=== PATIENT | female | born 1980 | race Caucasian/White ===

== ENCOUNTER 2021-07-29 15:14 | Outpatient (CLI) | payer BC ==
--- NOTE | 2021-07-30 09:08 | Ultrasound Report ---
PROCEDURE: OB Detailed Eval INDICATIONS: SUPERVISION OF NORMAL PREGANCY OUTSIDE/PRIOR DATING DATA: Last menstrual period (LMP): 03/07/2021. LMP-based estimated date of delivery (WILFREDO): 12/12/2021. First dating scan (date and location): 07/29/2021 (current exam). Estimated date of delivery (WILFREDO) from first dating scan: 12/08/2021. The below data below was generated using the clinical WILFREDO of 12/12/2021 TECHNIQUE: Real-time scanning was performed of the fetus, with image documentation and biometric measurements. Endovaginal scanning: Not performed. COMPARISON: None. FINDINGS: General: A single living intrauterine gestation is present. Presentation: Interval Placenta: Placental position is anterior, without previa. Please note that initially the placenta a ppeared to be low-lying, but subsequently there was relaxation of the lower uterine segment and the p lacenta is seen to be located 5.6 cm from the internal cervical os. Amniotic fluid index: 17.8 cm cm, normal for gestational age. Largest single vertical pocket: 5.5 cm. heart rate: 152 beats per minute. Maternal cervical canal: 4.6 cm long; normal length is 2.5 cm or more. biometrics: Biparietal diameter: 5.26 cm, 22 weeks 0 days Head circumference: 19.3 cm, 21 weeks 4 days Abdominal circumference: 16.8 cm, 21 weeks 5 days Femur length: 3.18 cm, 19 weeks 6 days Estimated gestational age from initial scan: not applicable. Estimated clinical gestational age: 20 weeks 4 days Composite gestational age from present scan: 21 weeks 1 day Estimated weight and percentile: 394 g, 71st percentile Measurement variability in biometric dating: +/- 10 days from 12-20 weeks gestation, +/- 2 weeks from 20-30 weeks gestation, +/- 3 weeks at 30 weeks gestation or later. Anatomic survey: Neuro: Ventricles are normal at less than 10 mm. Cisterna magna is normal at 3-11 mm. Cerebellum i s normal in size and morphology. Nuchal skin fold: Normal at less than 6 mm between 14 and 20 weeks gestational age. Face: Nose and lips, facial profile are normal. Spine: No evidence for spina bifida. Heart: 4-chambered heart is present, with normal ventricular outflow tracts. Diaphragm: Diaphragm is intact. Stomach: Left-sided stomach is present. Kidneys: No hydronephrosis. Normal is less than 5 mm in 2nd trimester, less than 7 mm in 3rd trimester. Cord: 3 vessel cord has orthotopic insertion. Bladder: Normal in size. Extremities: All 4 extremities are visualized. IMPRESSION: 1.Single live intrauterine . 2.Normal anatomic survey. Reviewed by: Sesar Guadalupe MD on 07/30/2021 9:06 AM [facility] Approved by: Sesar Guadalupe MD on 07/30/2021 9:06 AM PST Station ID: [id number]
== END 2021-07-29 15:15 | disposition home or self-care (01) ==
LOC: DI 15:14
PROVIDERS: ATTEND Midwife
DX: Z34.02 Encounter for supervision of normal first pregnancy, second trimester (principal)

== ENCOUNTER 2021-12-16 01:57 | Inpatient (IN) | payer BC ==
[2021-12-16 02:34] LABS: RUPTURE OF MEMBRANES PLUS POSITIVE (NEGATIVE)
[2021-12-16] MEDS ORDERED: SODIUM CHLORIDE FLUSH 0.9% 10 ML SYRINGE IVP PRN (03:16)
[2021-12-16] MEDS ORDERED: CARBOPROST TROMETHAMINE 250 MCG/ML AMP IM PRN (03:16)
[2021-12-16] MEDS ORDERED: TERBUTALINE 1 MG/ML VIAL SUBQ PRN (03:16)
[2021-12-16] MEDS ORDERED: METHYLERGONOVINE 0.2 MG/ML VIAL IM PRN (03:16)
[2021-12-16] MEDS ORDERED: miSOPROStoL 200 MCG TABLET BC PRN (03:16)
[2021-12-16] MEDS ORDERED: miSOPROStoL 200 MCG TABLET PR PRN (03:16)
[2021-12-16] MEDS ORDERED: OXYTOCIN 10 UNIT/ML VIAL IM PRN (03:16)
[2021-12-16] MEDS ORDERED: LIDOCAINE-MPF 1% 30 ML VIAL ID PRN (03:16)
[2021-12-16] MEDS ORDERED: fentaNYL 100 MCG/2 ML VIAL IVP PRN (03:16)
[2021-12-16] MEDS ORDERED: TRANEXAMIC ACID IN NACL 1,000 MG/100 ML BAG IV PRN (03:16)
[2021-12-16 03:29] LABS: BASOPHILS % (AUTO) 0.3 %; EOSINOPHILS # (AUTO) 0.1 10^3/uL (0.0-0.7); EOSINOPHILS % (AUTO) 0.6 %; HCT - HEMATOCRIT 35.1 % (37.0-47.0); HGB - HEMOGLOBIN 11.7 g/dL (12.0-16.0); LYMPHOCYTES # (AUTO) 1.2 10^3/uL (1.5-3.5); LYMPHOCYTES % (AUTO) 13.5 %; MEAN CORPUSCULAR HEMOGLOBIN 28.5 pg (27.0-31.0); MEAN CORPUSCULAR HGB CONC 33.3 g/dL (32.0-36.0); MEAN CORPUSCULAR VOLUME 85.6 fL (81.0-99.0); MEAN PLATELET VOLUME 12.9 fL (7.9-10.8); MONOCYTES # (AUTO) 0.6 10^3/uL (0.0-1.0); MONOCYTES % (AUTO) 6.6 %; NEUTROPHILS % (AUTO) 78.7 %; PLT - PLATELET COUNT 166 10^3/uL (130-450); RED CELL DISTRIBUTION WIDTH 13.2 % (12.0-15.0); WHITE BLOOD COUNT 8.9 x10^3/uL (4.8-10.8)
[2021-12-16] MEDS ORDERED: LACTATED RINGERS 1,000 ML IV SCH (04:00)
[2021-12-16] MEDS ORDERED: fentaNYL 100 MCG/2 ML VIAL ONE (10:11)
[2021-12-16] MEDS ORDERED: ROPIVACAINE 0.2% 200 MG/100 ML BAG EP ONE (10:11)
[2021-12-16] MEDS ORDERED: diphenhydrAMINE INJ 50 MG/ML VIAL IVP PRN (10:28)
[2021-12-16] MEDS ORDERED: ONDANSETRON 4 MG/2 ML VIAL IVP PRN (10:28)
[2021-12-16] MEDS ORDERED: METOCLOPRAMIDE 10 MG/2 ML VIAL IVP PRN (10:28)
[2021-12-16] MEDS ORDERED: NALOXONE 0.4 MG/ML VIAL IVP PRN (10:28)
[2021-12-16] MEDS ORDERED: ePHEDrine 50 MG/ML VIAL IVP PRN (10:28)
[2021-12-16] MEDS ORDERED: NALBUPHINE 10 MG/ML AMP IVP PRN (10:28)
--- NOTE | 2021-12-16 10:28 | ANESTHESIA PROCEDURE NOTE ---
Anesthesia Epidural Template - Patient Report Patient Reports: positive: Pain controlled - Plan Plan: positive: Continue current management
--- NOTE | 2021-12-16 10:28 | ANESTHESIA ---
Pre-Anesthesia VS, & Labs - Diagnosis active labor - Procedure labor epidural Vital Signs: Temp Pulse Resp BP Pulse Ox 36.9 C 66 16 93/47 L 12/16/21 03:27 12/16/21 03:27 12/16/21 03:27 12/16/21 03:27 Height: 5 ft 7 in Weight (kg): 73.482 kg Body Mass Index: 25.3 BMI Classification: Overweight - NPO Other (drinking) - Is Patient ?: Yes - Lab Results Current Lab Results: Laboratory Tests 12/16/21 03:41: Blood Type A POSITIVE, Antibody Screen NEGATIVE 12/16/21 03:00: WBC 8.9, RBC 4.10 L, Hgb 11.7 L, Hct 35.1 L, MCV 85.6, MCH 28.5, MCHC 33.3, RDW 13.2, Plt Count 166, MPV 12.9 H, Neut # (Auto) 7.0 H, Lymph # (Auto) 1.2 L, [place] # (Auto) 0.6, Eos # (Auto) 0.1, Baso # (Auto) 0.0, Absolute Nucleated RBC 0.00, Nucleated RBC % 0.0 Fish Bones: 12/16/21 03:00 Home Medications and Allergies Active Medications Carboprost Tromethamine (Carboprost Tromethamine 250 Mcg/Ml Amp) 250 mcg IM .ONCE PRN PRN Reason: Hemorrhage Fentanyl (Fentanyl 100 Mcg/2 Ml Vial) 50 mcg IVP Q1H PRN PRN Reason: Severe Pain (score 7-10) Oxytocin/Sodium Chloride (Pitocin/Sodium Chloride) 500 mls @ 999 mls/hr IV PRN PRN; Protocol PRN Reason: POST- HEMORR PREVENTION Tranexamic Acid (Tranexamic 1,000 Mg/100ml-Nacl) 1,000 mg in 100 mls @ 600 mls/hr IV Q30M PRN PRN Reason: EBL >1200mL and within 3hr Lactated Ringer's (Lr) 1,000 mls @ 75 mls/hr IV .[id number] GEOVANI Lidocaine HCl (Lidocaine-Mpf 1% 30 Ml Vial) 30 ml ID ONCE PRN PRN Reason: PERINEAL REPAIR Stop: 12/17/21 03:16 Methylergonovine Maleate (Methylergonovine 0.2 Mg/Ml Vial) 0.2 mg IM .ONCE PRN PRN Reason: Hemorrhage Misoprostol (Misoprostol 200 Mcg Tablet) 600 mcg BC .ONCE PRN PRN Reason: Hemorrhage Misoprostol (Misoprostol 200 Mcg Tablet) [address] .ONCE PRN PRN Reason: Hemorrhage Oxytocin (Oxytocin 10 Unit/Ml Vial) 10 unit IM .ONCE PRN PRN Reason: Step One if no IV access. Sodium Chloride (Sodium Chloride Flush 0.9% 10 Ml Syringe) 10 ml IVP PRN PRN PRN Reason: NEEDED PER PROVIDER ORDERS Terbutaline Sulfate (Terbutaline 1 Mg/Ml Vial) 0.25 mg SUBQ .ONCE PRN PRN Reason: Tachystole Allergies/Adverse Reactions: Allergies Allergy/AdvReac Type Severity Reaction Status Date / Time codeine AdvReac Unknown Verified 12/16/21 03:32 Anes History & Medical History - Anesthetic History Anesthesia Complications: reports: No previous complications Family history of Anesthesia Complications: Denies Family history of Malignant Hyperthermia: Denies - Medical History Cardiovascular: reports: None Pulmonary: reports: None Gastrointestinal: reports: None Urinary: reports: None Neuro: reports: None Musculoskeletal: reports: Scoliosis Endocrine/Autoimmune: reports: None Smoking Status: Never smoker Exam General: Alert, Oriented x3, Severe distress Dental: WNL Mouth Openin Fingerbreadth Neck Mobility: Normal Thyromental Distance: 4-6 cm Respiratory: Lungs clear Cardiovascular: Regular rate Plan Anesthesia Type: Epidural Consent for Procedure(s) Verified and Reviewed: Yes Code Status: Attempt Resuscitation ASA classification: 2-Mild systemic disease Is this case an emergency?: No
--- NOTE | 2021-12-16 11:56 | HISTORY & PHYSICAL EXAMINATION ---
Admit History - Visit Reason Visit Reason: Contractions, Membranes rupture - : 3 Parity: 1 Premature: 0 Ectopic: 0 : 1 Care: positive: [facility] Risk/History: positive: None Complications This : positive: None Smoking Status: Never smoker - Mother's Labs Mother's Blood Type: positive: A Mother's RH: positive: Positive GBS: positive: Group B Step Negative Rubella Status: positive: Immune Meds/Allgy - Allergies Allergies/Adverse Reactions: Allergies Allergy/AdvReac Type Severity Reaction Status Date / Time codeine AdvReac Unknown Verified 12/16/21 03:32 Review of Systems - Constitutional Constitutional: denies: Fatigue, Fever, Chills - Eyes Eyes: denies: Blurred vision, Spots in vision, Dipolpia - Cardiovascular Cariovascular: denies: Irregular heart rate, Palpitations, Chest pain, Edema - Respiratory Respiratory: denies: Cough, Wheezing, SOB at rest - Gastrointestinal Gastrointestinal: denies: Constipation, Diarrhea, Nausea, Vomiting - Integumentary Integumentary: denies: Rash, Pruritis - Neurological Neurological: denies: Headache - Psychiatric Psychiatric: reports: Anxiety Physical - Abdominal Exam Vital Signs: Temp Pulse Resp BP Pulse Ox 36.9 C 66 16 93/47 L 12/16/21 03:27 12/16/21 03:27 12/16/21 03:27 12/16/21 03:27 Contraction Frequency (min/apart): 2-5 Contraction Intensity: positive: Strong Uterine Resting Tone: positive: Soft - Monitoring Heart Rate Baseline: 115 Strip Review: positive: Category I - Presentation Presentation: positive: Vertex - Vaginal Exam Membranes: positive: Membranes intact Cervical Position: positive: Posterior - Speculum Exam Speculum Exam Performed: positive: No Findings: positive: Gross leak, Other Plan for Labor - Plan For Labor I expect patient to be DC'd or transferred within 96 hours.: Yes Plan for Labor: Yudith is a 41yo @ 40.4wks gestation by LMP who presents today [facility] with c/o contractions and SROM at 2230 on 12/16/2021. She states the fluid was yellowish color and experienced a large gush. She reports her contractions were not initially strong but have become strong once she started driving here. She denies vaginal bleeding and she reports +FM. Upon arrival her ROM+ was positive. SVE attempted but cervix not able to be adequately assessed secondary to pt discomfort. She was found to contract every 2-5 minutes palpating strong with soft resting tone. She is a patient of [facility] since her transfer of care from [facility] at 34wks gestation. She has had an uneventful thus far complicated only by AMA. Her NIPT was negative. She is supported by her Robert today. G1: 02/04/2019 @ 41.5wks, 38hr labor, 2hr 2nd stage. Epidural. Intact. 7lb8oz female - Fabricio G2: 12/2020 SAB @ 5wks G3: Current Allergies: Codeine, shellfish Medications: PNV PMHx: Headaches Surgical Hx: none Family Hx: no significant Social Hx: Never smoker. No ETOH or IVDA. course: LMP 03/07/2021 WILFREDO by LMP 12/12/2021 Serial exams - agree A positive RPR nonreactive HIV - opt-out Genetic screening- NIPT negative FAS @ 20.4wks WNL. Anterior placenta, no previa. 3VC. Size c/w dating. Glucola 74 GBS neg HSV- declines in self and partner Last pap 2018 WNL - no hx of abnormal paps. Physcial Exam: Normocephalic, atraumatic Heart RRR w/o M/G/R Lungs CTAB Abdomen gravid, soft and nonteder EFW 3900g SVE deferred FHR baseline 115, moderate variability, + accels, no decels Contractions palpate strong every 2-5 minutes with soft resting tone Bilateral LE's trace edema Mood is good Assessment: 41yop @ 40.4wks gestation by LMP Active labor GBS neg SROM with light meconium FHR Category I Plan: Admit for expectant management Encouraged ambulation and position changes Jacuzzi PRN. Nitrous oxide PRN. Epidural per maternal request Anticipate .
--- NOTE | 2021-12-16 12:02 | PROVIDER PROGRESS NOTE ---
Labor Progress Note - Uterine Monitoring Uterine Monitoring Mode: positive: External toco Contraction Frequency (min/apart): 2-5 Contraction Intensity: positive: Strong Uterine Resting Tone: positive: Soft - Monitoring Monitor Mode: positive: External ultrasound Heart Rate Baseline: 110 Heart Rate Variability: positive: Moderate (6-25 bmp) Accelerations: positive: Present, 15x15 Decelerations: positive: Early, Late, Intermittent (<50% x20 min) Strip Review: positive: Category I - Vaginal Exam Dilation (in cm): 9 Effacement (%): 100 Station: 0 - Labor Progress Note Labor Progress Note/Additional Text: S: Yudith requests epidural for pain management. PATIENT PARTNER regional wildlife agent presented for placement of epidural and pt is currently resting with adequate pain relief. She requests to take a nap prior to a repeat cervical exam. Her is supportive at the bedside. O: FHR baseline 110, moderate variability, + accels, occasional early deceleration, occasional subtle late decelerations - overall reassuring SVE last chack 9/100/0 - deferred at this time per pt request A: 41yo @ 40.4wks gestation by LMP Active labor FHR Category II GBS negative P: Maintain epidural for pain management. Promote rest x 1 hour and then repeat SVE Encouraged position changes in bed on peanut ball. Anticipate .
[2021-12-16] MEDS: OXYTOCIN/SODIUM CHLORIDE 500 ML IV PRN ×2 (13:55→14:53)
[2021-12-16] MEDS ORDERED: WITCH HAZEL/GLYCERIN 1 PAD TOP PRN (14:13)
[2021-12-16] MEDS ORDERED: HYDROCORTISONE 1% CREAM 28 GM TUBE PR PRN (14:13)
--- NOTE | 2021-12-16 14:14 | DELIVERY NOTE ---
Delivery Note - Labor Labor: positive: Spontaneous - Delivery Method Delivery Method: positive: Spontaneous vaginal delivery - Presentation Presentation: positive: Vertex, NAVI - left occiput anterior - Nuchal Cord Nuchal Cord: positive: None - Amniotic Fluid Description Amniotic Fluid Description: positive: Light meconium - Episiotomy Type Episiotomy Type: positive: None - Laceration Laceration: positive: None - Delivery Outcome Delivery Outcome: positive: Livebirth - : positive: Placed in direct skin contact with mother, Stimulated, Warmed, [place] used sex: positive: Male - Cord Cord: positive: 3 vessels - Placenta Placenta: positive: Intact, Spontaneous - Estimated Blood Loss Estimated Blood Loss (in cc): 350 - Post Delivery Events Post Delivery Events: positive: No post delivery events - Delivery Comments (Free Text/Narrative) Delivery Comments (Free Text/Narrative): Labor: This 41yo @ 40.4wks gestation by LMP presented on 12/15/2021 with c/o SROM which occurred at 2030 and was noted to be a moderate amount of meconium stained amniotic fluid. SVE difficult to assess secondary to pt discomfort. ROM+ positive. FHR pattern demonstrated Category I pattern throughout labor. Normal labor course. Epidural placed per maternal request. Pt progressed to c/c/+2 at 1306 with onset of pushing at 1312. : Normal of a 9lb 2oz viable male on 12/16/2021 at 1341. No nuchal cord. The was placed on maternal abdomen, stimulated, dried, and placed skin to skin. Apgars were 9/10 at 1 and 5 minutes respectively. Pitocin administered via IV for hemostasis. The umbilical cord was allowed to stop pulsating at which time it was doubly clamped and cut by CNM. 3VC. Cord blood was obtained. Fundal massage and gentle cord traction applied for active management of the third stage. Placenta delivered spontaneously and intact at 1354. EBL 350mL. Fourth stage: Uterine fundus firm and there is no excessive bleeding. The perineum, vagina, and cervix were inspected and noted to be intact. initiated. Family bonding well. Both mother and baby were left in stable condition.
[2021-12-16] MEDS: IBUPROFEN 800 MG TABLET PO SCH ×2 (15:30→23:35)
[2021-12-16] MEDS: ACETAMINOPHEN 500 MG TABLET PO SCH ×2 (15:30→20:53)
[2021-12-17] MEDS: ACETAMINOPHEN 500 MG TABLET PO SCH ×2 (05:56→14:57)
[2021-12-17] MEDS: IBUPROFEN 800 MG TABLET PO SCH ×2 (05:56→12:41)
--- NOTE | 2021-12-17 08:22 | Discharge Plan ---
Discharge Plan Problem Reviewed?: Yes Disposition: Home, Self Care Condition: Good Diet: Regular Shower Restrictions: No Driving Restrictions: No Weight Bearing: Full Weight Instruction Topics: Vaginal After No Smoking: If you smoke, Please STOP! Call for help. Follow-up with: Lyubov Osei CNM, ARNP [Provider Admit Priv/Credential] - 2 Weeks
--- NOTE | 2021-12-17 08:31 | DISCHARGE SUMMARY ---
Discharge Summary Condition at Discharge: Good Discharge Disposition: 01 Home, Self Care - HOSPITAL COURSE Hospital Course: Date of Admission: 12/15/2021 Date of Discharge: 12/17/2021 Diagnosis on Admission: 1. 41yo @ 40.4wks gestation 2. Active labor 3. GBS neg 5. SROM with light meconium 6. FHR Category I Diagnosis on Discharge: 1. 41yo PPD#1 s/p TSVD viable male infant 2. 3. Normal recovery Brief History: She is a patient of [facility] who presented on 12/15/2021 with c/o vaginal leakage of fluid and contractions. SVE unable to assess secondary to pt discomfort. Vertex presentation. ROM+ positive. She was found to contract every 2-5 minutes and they palpated strong with soft resting tone. She was expectantly managed and spontaneously progressed to deliver a viable male infant on 12/16/2021 at 1341. Apgars were 9/10 and 1 and 5 minutes respectively. EBL 350mL. The perineum, vagina, and cervix were inspected and noted to be intact. She has been doing well in her course. She is ambulating and tolerating a regular diet. She is urinating without difficulty and her lochia is normal. Her pain is well controlled with oral medications. She is without difficulty and she is bonding well with her baby. They strongly desire to be discharged home today. She will be discharged home today on popstarum day #1 with instructions to continue taking her vitamin while and to continue taking ibuprofen and tylenol over the counter as needed for pain management. She intends to follow up with myself at [facility] in 2 weeks or sooner if needed. She has been given precautions to call if she has any worsening fevers, chills, abdominal pain, increased vaginal bleeding or foul smelling vaginal lochia. - ALLERGIES Allergies/Adverse Reactions: Allergies Allergy/AdvReac Type Severity Reaction Status Date / Time codeine AdvReac Unknown Verified 12/16/21 03:32 - LABS Result Diagrams: 12/16/21 03:00
[2021-12-17] MEDS: DOCUSATE SODIUM 100 MG CAPSULE PO SCH ×2 (12:41→12:42)
[2021-12-17 16:17] VITALS: BP 108/66
--- NOTE | 2021-12-17 16:20 | Labor Flowsheet ---
Labor Flowsheet Datetime Report Generated by CPN: 12/17/2021 16:20 Datetime: 12/17/2021 15:41 VITAL SIGNS NBP Sys/Leti/Mean (mmHg): 108 : 66 : 74 Pulse: 66 Datetime: 12/16/2021 17:14 SpO2 (%): 100 Datetime: 12/16/2021 14:32 PAIN Pain Scale: 0 Pain Presence: None/Denies Datetime: 12/16/2021 14:00 MEDICATIONS Pitocin (milliunits): Increased to @ 999 Medication Comments: Increased due to increased bleeding; Lyubov Sea, CNM, MACHINE APPLICATOR CEMENTER, aware Datetime: 12/16/2021 13:55 Stage of : Recovery Datetime: 12/16/2021 13:45 LaborFlag: Labor Datetime: 12/16/2021 13:41 UTERINE ACTIVITY Monitor Mode: External Frequency (min): 3.5-5 Quality: Strong Duration (sec): 70-100 Pattern: Normal: <= 5 Contractions in 10 Minutes Resting Tone (Palpate): Relaxed Contraction Comments: Pushing contractions ASSESSMENT A Monitor Mode: Telemetry FHR Baseline Rate : 110 Variability: Moderate 6-25 bpm Accelerations: None Decelerations: Variable Category: Category II Oxygen Method: Room Air Datetime: 12/16/2021 13:12 STAGE 2 Pushing: No Urge to Push Pushing Position: Pushing with Contractions; Pushing Lithotomy Pushing Progress: Descent with Pushing Datetime: 12/16/2021 13:06 VAGINAL EXAM Dilatation (cm): 10.0 Effacement (%): 100 Station: 2 Exam by: Lyubov Osei, CNM, MACHINE APPLICATOR CEMENTER Datetime: 12/16/2021 13:05 COMMUNICATION Communication: Provider at Bedside Datetime: 12/16/2021 12:33 Monitor Interventions for UA: [place] Adjusted Monitor Interventions for FHR: Ultrasound Adjusted Datetime: 12/16/2021 12:02 Patient Position/Activity: Right Lateral Patient Care Comments: Pillow between knees Datetime: 12/16/2021 12:00 Respirations: 17 Anesthesia Level Check: T10- Umbilicus Datetime: 12/16/2021 11:45 Comments: Late decel starting at 11:40 vs wandering baseline Datetime: 12/16/2021 11:08 I/O Interventions: Clear Liquids Given Datetime: 12/16/2021 10:37 PATIENT CARE IV/Blood Work: IV Bolus Given ml @ 500; IV Infusing per Order Datetime: 12/16/2021 10:30 Communication Comments: Lyubov Sea, CNM, continues to be at bedside Datetime: 12/16/2021 10:18 ANESTHESIA Epidural Procedure: Completed Epidural Procedure Other: Pump Started Datetime: 12/16/2021 09:36 Membrane Status: Ruptured Membranes Rupture Method: Spontaneous Amniotic Fluid Color: Light Meconium Amniotic Fluid Amount: Small Membrane Comments: Forebag ruptured Datetime: 12/16/2021 09:27 Pain Coping: Writhing Datetime: 12/16/2021 09:00 FHR Baseline Changes: Bradycardia Datetime: 12/16/2021 07:28 Temperature (C): 36.4 Temperature Route: Oral Datetime: 12/16/2021 06:39 Strip Reviewed by: BRAXTON Coombs CNM Provider Notified (Name): Lyubov Osei MACHINE APPLICATOR CEMENTER CNM Datetime: 12/16/2021 06:07 Pain Assessment Comments: nitrous oxide Datetime: 12/16/2021 06:06 Provider Reviewed Strip: No Notification Reason: Status Update; Status; Labor Status; Uterine Activity; Pain Datetime: 12/16/2021 06:03 Cervix, Position: Posterior Vaginal Exam Comments: Unable to reach. Patient unable to tolerate exam Datetime: 12/16/2021 04:50 Vaginal Bleeding: Normal Show Datetime: 12/16/2021 03:42 Comfort Measures: Hot Shower/Tub/Spa
== END 2021-12-17 15:45 | disposition home or self-care (01) | DRG 807 ==
LOC: WFO 01:57 → FBP 01:59 → WFO 03:15 → FBP 03:16
PROVIDERS: ADMIT Nurse Practitioner Obstetrics & Gynecology; ATTEND Nurse Practitioner Obstetrics & Gynecology
PROC: 10E0XZZ Delivery of Products of Conception, External Approach (ICD-10-PCS; principal; 2021-12-16)
DX: O77.0 Labor and delivery complicated by meconium in amniotic fluid (principal); Z37.0 Single live birth; Z3A.40 40 weeks gestation of pregnancy; O99.344 Other mental disorders complicating childbirth; F41.9 Anxiety disorder, unspecified
CPT/HCPCS: 59025; 84112; 85025; 86850; 86900; 86901; 99215; A9270; J7120